=== PATIENT | male | born 1955 | race Caucasian/White ===

== ENCOUNTER 2017-07-28 06:28 | Emergency (ER) | payer BC ==
[2017-07-28] MEDS ORDERED: HYDROCODONE/APAP 5/325 MG TAB ONE (07:13)
--- NOTE | 2017-07-28 08:29 | RAD REPORT ---
EXAM DESCRIPTION: CT - Stone Protocol - 07/28/2017 8:19 am CLINICAL HISTORY: Abdominal pain, left lower extremity pain, history of cancerous polyp removal, theresa endectomy and cholecystectomy COMPARISON: CT imaging June 2015 TECHNIQUE: Axial 5 mm thick images were obtained without oral or IV contrast. The [id number] span s the entirety of the system partially obscuring uppermost abdomen and lung bases. All CT scans are performed using dose optimization technique as appropriate and may include automated exposure control or mA/KV adjustment according to patient size. FINDINGS: No hydronephrosis is present and no obstructing ureteral calculi. No suspicious renal mass es. Isodense masses and pyelonephritis are not excluded on a stone protocol CT scan. Partially filled urinary bladder shows no suspicious finding. Prostate gland and seminal vesicles within normal limit s. Nonspecific perinephric stranding is present similar to prior imaging. Liver shows a mild diffuse fatty infiltration pattern. No focal lesions on noncontrast imaging. Blanka cystectomy clips are present. No biliary tree dilatation. Spleen and pancreas show no acute or suspic ious findings. No significant adrenal finding. No acute bowel finding. Partial right colectomy changes are noted. No abnormality at the anastomotic site. No mass or bulky lymphadenopathy. Fat extends into the origin of the left inguinal canal in a pattern similar to prior imaging. No free air, free fluid or inflammatory stranding. No significant bony abnormality. IMPRESSION: Noncontrast CT abdomen and pelvis imaging shows no acute finding or significant change f rom prior imaging. Nonacute findings detailed in the body of the report. Isodense masses and pyelonephritis are not excluded on stone protocol technique.
--- NOTE | 2017-07-28 09:03 | EDPHYS ---
Physician Documentation [facility] Name: Randolph Carlin Age: 62 yrs Sex: Male : 1955 Arrival Date: 07/28/2017 Time: 06:32 Bed 20 Private MD: Christian Lopez ED Physician Porfirio Rao HPI: 07/28 06:41 This 62 yrs old Male presents to ER via Unassigned with complaints of Leg snw Pain. 06:41 The patient presents with pain, that is acute. The complaints affect the left hip, snw lateral aspect of left thigh and lateral aspect of left calf. Context: The problem was sustained at home, resulted from an unknown cause, the patient can fully bear weight, the patient is able to ambulate, without difficulty. Onset: The symptoms/episode began/occurred suddenly, and became persistent 5 days ago, with ambulation. Associated signs and symptoms: Pertinent negatives calf tenderness, numbness, weakness. Severity of symptoms: At their worst the symptoms were moderate. The patient has not experienced similar symptoms in the past. The patient has not recently seen a physician. Historical: - Allergies: 06:47 No Known Allergies; bp - Home Meds: 06:47 metformin 500 mg Oral tab 1 tab 2 times per day [Active]; hydrochlorothiazide 12.5 mg bp Oral cap 1 cap once daily [Active]; clonidine HCl 0.1 mg Oral tab 1 tab 2 times per day [Active]; diltiazem HCl 300 mg Oral cp24 1 cap once daily [Active]; - PMHx: 06:47 Diabetes - NIDDM; Hypertension; bp - Immunization history:: Adult Immunizations up to date. - Social history:: Smoking status: unknown. - Ebola Screening: : Patient negative for fever greater than or equal to 101.5 degrees Fahrenheit, and additional compatible Ebola Virus Disease symptoms Patient denies exposure to infectious person Patient denies travel to an Ebola-affected area in the 21 days before illness onset No symptoms or risks identified at this time. ROS: 06:59 Constitutional: Negative for fever, chills, and weight loss, Eyes: Negative for injury, snw pain, redness, and discharge, ENT: Negative for injury, pain, and discharge, Neck: Negative for injury, pain, and swelling, Cardiovascular: Negative for chest pain, palpitations, and edema, Respiratory: Negative for shortness of breath, cough, wheezing, and pleuritic chest pain, Abdomen/GI: Negative for abdominal pain, nausea, vomiting, diarrhea, and constipation, Back: Negative for injury and pain, : Negative for injury, bleeding, discharge, and swelling, Skin: Negative for injury, rash, and discoloration, Neuro: Negative for headache, weakness, numbness, tingling, and seizure. 06:59 MS/extremity: Positive for pain, of the left hip and left leg. Exam: 06:59 Constitutional: This is a well developed, well nourished patient who is awake, alert, snw and in no acute distress. Head/Face: Normocephalic, atraumatic. Eyes: Pupils equal round and reactive to light, extra-ocular motions intact. Lids and lashes normal. Conjunctiva and sclera are non-icteric and not injected. Cornea within normal limits. Periorbital areas with no swelling, redness, or edema. ENT: Nares patent. No nasal discharge, no septal abnormalities noted. Tympanic membranes are normal and external auditory canals are clear. Oropharynx with no redness, swelling, or masses, exudates, or evidence of obstruction, uvula midline. Mucous membranes moist. Neck: Trachea midline, no thyromegaly or masses palpated, and no cervical lymphadenopathy. Supple, full range of motion without nuchal rigidity, or vertebral point tenderness. No Meningismus. Chest/axilla: Normal chest wall appearance and motion. Nontender with no deformity. No lesions are appreciated. Cardiovascular: Regular rate and rhythm with a normal S1 and S2. No gallops, murmurs, or rubs. Normal PMI, no JVD. No pulse deficits. Respiratory: Lungs have equal breath sounds bilaterally, clear to auscultation and percussion. No rales, rhonchi or wheezes noted. No increased work of breathing, no retractions or nasal flaring. Abdomen/GI: Soft, non-tender, with normal bowel sounds. No distension or tympany. No guarding or rebound. No evidence of tenderness throughout. Back: No spinal tenderness. No costovertebral tenderness. Full range of motion. Skin: Warm, dry with normal turgor. Normal color with no rashes, no lesions, and no evidence of cellulitis. Neuro: Awake and alert, GCS 15, oriented to person, place, time, and situation. Cranial nerves II-XII grossly intact. Motor strength 5/5 in all extremities. Sensory grossly intact. Cerebellar exam normal. Normal gait. Psych: Awake, alert, with orientation to person, place and time. Behavior, mood, and affect are within normal limits. 06:59 Musculoskeletal/extremity: Extremities: grossly normal except: noted in the lateral aspect of left thigh and left hip and left leg: pain. Vital Signs: 06:47 BP 173 / 92; Pulse 80; Resp 16; Temp 98.1; Pulse Ox 96% ; Weight 99.79 kg; Height 5 ft. bp 6 in. (167.64 cm); 07:14 BP 116 / 43; Pulse 70; Resp 18; Pulse Ox 96% ; sv 06:47 Body Mass Index 35.51 (99.79 kg, 167.64 cm) bp MDM: 06:40 Patient medically screened. snw 08:02 Data reviewed: vital signs, nurses notes. Data interpreted: Pulse oximetry: on room air snw is 96 %. Interpretation: acceptable. Counseling: I had a detailed discussion with the patient and/or guardian regarding: radiology results, need to re-assess with CT to eval L2-L3 and L3-L4 spaces, plain films show increased densities in these areas. ED course: pt returned from CT via w/c. 07/28 07:03 Order name: Lumbar Spine (3 Views) XRAY; Complete Time: 09:26 snw 07/28 08:02 Order name: CT Stone Protocol; Complete Time: 08:42 snw Administered Medications: 07:14 Drug: [place] 5 mg-325 mg 1 tabs Route: PO; sv Disposition: 13:05 Co-signature as Attending Physician, Porfirio Rao MD. gs Disposition: 07/28/17 09:02 Discharged to Home. Impression: Radiculopathy, lumbar region. - Condition is Stable. - Discharge Instructions: Back Pain, Adult, Lumbosacral Radiculopathy. - Prescriptions for Diclofenac Sodium 75 mg Oral Tablet Sustained Release - take 1 tablet by ORAL route 2 times per day; 30 tablet. orphenadrine citrate 100 mg Oral Tablet Sustained Release - take 1 tablet by ORAL route 2 times per day As needed; 20 tablet. - Medication Reconciliation Form, Thank You Letter, Antibiotic Education, Prescription Opioid Use form. - Follow up: Christian Lopez MD; When: 2 - 3 days; Reason: Recheck today's complaints, Continuance of care, Re-evaluation by your physician. Follow up: Emergency Department; When: As needed; Reason: Worsening of condition. Signatures: Dispatcher [employer] EDMS Nikole Hansen RN RN sv Giulia Lerma, SWITCH COUPLER-C SWITCH COUPLER-Csnw Porfirio Rao MD MD gs Peltier, Brian, RN RN bp Corrections: (The following items were deleted from the chart) 09:43 09:02 07/28/2017 09:02 Discharged to Home. Impression: Radiculopathy, lumbar region. sv Condition is Stable. Forms are Medication Reconciliation Form, Thank You Letter, Antibiotic Education, Prescription Opioid Use. Follow up: Christian Lopez; When: 2 - 3 days; Reason: Recheck today's complaints, Continuance of care, Re-evaluation by your physician. Follow up: Emergency Department; When: As needed; Reason: Worsening of condition. snw
--- NOTE | 2017-07-28 09:03 | ER ---
Nurse's Notes [facility] Name: Randolph Carlin Age: 62 yrs Sex: Male : 1955 Arrival Date: 07/28/2017 Time: 06:32 Bed 20 Private MD: Christian Lopez Diagnosis: Radiculopathy, lumbar region Presentation: 07/28 06:45 Presenting complaint: Patient states: LEFT LEG PAIN x5 DAYS WHEN STANDING. Transition bp of care: patient was not received from another setting of care. Onset of symptoms is unknown. Risk Assessment: Do you want to hurt yourself or someone else? Patient reports no desire to harm self or others. Initial Sepsis Screen: Does the patient meet any 2 criteria? No. Patient's initial sepsis screen is negative. Does the patient have a suspected source of infection? No. Patient's initial sepsis screen is negative. Care prior to arrival: None. 06:45 Method Of Arrival: Ambulatory bp 06:45 Acuity: MARIA TERESA 4 bp Triage Assessment: 06:47 General: Appears in no apparent distress. uncomfortable, obese, Behavior is calm, bp cooperative, appropriate for age. Pain: Complains of pain in left leg. EENT: No deficits noted. Neuro: Level of Consciousness is awake, alert, obeys commands, Oriented to person, place, time, situation, Appropriate for age. Cardiovascular: No deficits noted. Respiratory: Airway is patent Respiratory effort is even, unlabored, Respiratory pattern is regular, symmetrical. GI: No signs and/or symptoms were reported involving the gastrointestinal system. : No signs and/or symptoms were reported regarding the genitourinary system. Derm: No deficits noted. Musculoskeletal: Circulation, motion, and sensation intact. Range of motion: limited in left hip. Historical: - Allergies: 06:47 No Known Allergies; bp - Home Meds: 06:47 metformin 500 mg Oral tab 1 tab 2 times per day [Active]; hydrochlorothiazide 12.5 mg bp Oral cap 1 cap once daily [Active]; clonidine HCl 0.1 mg Oral tab 1 tab 2 times per day [Active]; diltiazem HCl 300 mg Oral cp24 1 cap once daily [Active]; - PMHx: 06:47 Diabetes - NIDDM; Hypertension; bp - Immunization history:: Adult Immunizations up to date. - Social history:: Smoking status: unknown. - Ebola Screening: : Patient negative for fever greater than or equal to 101.5 degrees Fahrenheit, and additional compatible Ebola Virus Disease symptoms Patient denies exposure to infectious person Patient denies travel to an Ebola-affected area in the 21 days before illness onset No symptoms or risks identified at this time. Screenin:49 Abuse screen: Denies threats or abuse. Denies injuries from another. Nutritional bp screening: No deficits noted. Tuberculosis screening: No symptoms or risk factors identified. Fall Risk None identified. Assessment: 06:49 General: SEE TRIAGE NOTE. bp 07:16 General: Appears in no apparent distress. uncomfortable, well developed, Behavior is sv calm, cooperative, appropriate for age. Pain: Complains of pain in left hip Pain radiates to left leg Pain currently is 8 out of 10 on a pain scale. Pain began 5 days Is intermittent. Neuro: Level of Consciousness is awake, alert, obeys commands, Oriented to person, place, time, situation, Moves all extremities. Respiratory: Respiratory effort is even, unlabored, Respiratory pattern is regular, symmetrical. Derm: Skin is pink, warm \T\ dry. 09:24 Reassessment: Awaiting Giulia SURGICAL SCRUB TECHNOLOGIST to speak with pt regarding results before discharge. sv 09:40 Reassessment: Giulia in to speak with pt regarding results. sv 09:43 Reassessment: Patient appears in no apparent distress at this time. Patient and/or sv family updated on plan of care and expected duration. Pain level reassessed. Patient is alert, oriented x 3, equal unlabored respirations, skin warm/dry/pink. Vital Signs: 06:47 BP 173 / 92; Pulse 80; Resp 16; Temp 98.1; Pulse Ox 96% ; Weight 99.79 kg; Height 5 ft. bp 6 in. (167.64 cm); 07:14 BP 116 / 43; Pulse 70; Resp 18; Pulse Ox 96% ; sv 06:47 Body Mass Index 35.51 (99.79 kg, 167.64 cm) bp ED Course: 06:32 Patient arrived in ED. al2 06:32 Christian Lopez MD is Private Physician. al2 06:37 Christian Armstrong, RN is Primary Nurse. bp 06:40 Giulia Lerma FNP-C [facility]. snw 06:40 Porfirio Rao MD is Attending Physician. snw 06:45 Triage completed. bp 06:47 Arm band placed on. bp 06:49 Patient has correct armband on for positive identification. Bed in low position. Call bp light in reach. Side rails up X2. Adult w/ patient. 07:06 Primary Nurse role handed off by Christian Armstrong, FLORECITA [place] 07:08 Nikole Hansen, FLORECITA is Primary Nurse. sv 07:42 Patient moved to radiology via wheelchair. sv 07:52 Lumbar Spine (3 Views) XRAY In Process Unspecified. EDMS 07:56 Patient moved back from radiology. sv 08:18 CT completed. Patient moved to CT via wheelchair. Patient moved back from CT. sw 08:19 CT Stone Protocol In Process Unspecified. EDMS 08:43 Awaiting radiology results. sv 09:02 Christian Lopez MD is Referral Physician. snw 09:43 No provider procedures requiring assistance completed. Patient did not have IV access sv during this emergency room visit. Administered Medications: 07:14 Drug: [place] 5 mg-325 mg 1 tabs Route: PO; sv Outcome: 09:02 Discharge ordered by . snw 09:43 Discharged to home ambulatory, Pt's spouse to drive pt home. sv 09:43 Condition: stable 09:43 Discharge instructions given to patient, Instructed on discharge instructions, follow up and referral plans. medication usage, Demonstrated understanding of instructions, follow-up care, medications, Prescriptions given X 2. 09:43 Patient left the ED. sv Signatures: Dispatcher [employer] EDID Glo Reyna Nikole Hansen, RN RN Giulia Lerma, LIFTS AND CRANES INSPECTOR-C LIFTS AND CRANES INSPECTOR-Csnw Sunshine Hutton Christian Armstrong, RN Kaye Hong
--- NOTE | 2017-07-28 09:14 | RAD REPORT ---
EXAM DESCRIPTION: RAD - Lumbar Spine 3 Views - 07/28/2017 7:54 am CLINICAL HISTORY: Back pain, left lower extremity radiculopathy COMPARISON: CT imaging August 2011 FINDINGS: A three-view lumbar spine examination was performed. Lumbar bodies are normal in height and alignment. No fracture or acute finding of the lumbar vertebra e. There is wedging of the T12 vertebrae without lytic, sclerotic or expansile component. This wedge configuration is stable since 2011. L3-4 disc space is narrowed. There is slight narrowing of the L4- 5 disc space. Mid and lower lumbar facet joint degenerative change present. No pars defects identifie d. Non aneurysmal aortoiliac calcifications are present. Mild SI joint degenerative changes are noted. IMPRESSION: Moderate L3-4 and mild L4-5 degenerative disc disease. Mild to moderate lower lumbar facet joint degenerative change. No acute or destructive bone finding seen. The wedge compression of T12 is stable back to at least 20 12.
[2017-07-28 09:55] VITALS: TEMP 98.1; O2SAT 96
[2017-07-28 09:56] VITALS: BP 116/43
== END 2017-07-28 09:43 | disposition home or self-care (01) ==
LOC: ER 06:28
DX: M54.16 Radiculopathy, lumbar region (principal); I10 Essential (primary) hypertension; E11.9 Type 2 diabetes mellitus without complications
CPT/HCPCS: 72100; 74176; 76377; 99284

== ENCOUNTER 2018-03-21 20:12 | Emergency (ER) | payer BC ==
--- OUTSIDE RECORDS SUMMARY | 2018-03-21 20:16 | XMS REPORT | Summary of Care ---
:1955 Author Organization [facility] Address [id number] [place] [id number] Encounter HQ Fatou_ciro(FIN) [id number] Date(s): 07/28/15 - 07/30/15 [facility] [id number] [place] [phone] Discharge Disposition: Home Attending Physician: Diomedes Schafer MD Admitting Physician: Diomedes Schafer MD Referring Physician: Diomedes Schafer MD Vital Signs Most recent to oldest 1 2 3 [Reference Range]: Height 167.64 cm (07/21/15 4:08 PM) Temperature Oral [96.4-99.1 98.0 DegF 98.5 DegF 98.0 DegF DegF] (07/30/15 3:43 PM) (07/30/15 11:34 AM) (07/30/15 8:00 AM) Blood Pressure [90-140/60-90 165/97 mmHg 175/96 mmHg 169/96 mmHg mmHg] *HI* *HI* *HI* (07/30/15 3:43 PM) (07/30/15 11:34 AM) (07/30/15 8:00 AM) Respiratory Rate [14-20 18 BRMIN 18 BRMIN 18 BRMIN BRMIN] (07/30/15 7:19 PM) (07/30/15 3:43 PM) (07/30/15 11:52 AM) Peripheral Pulse Rate [60-100 72 bpm 95 bpm 92 bpm bpm] (07/30/15 3:43 PM) (07/30/15 11:34 AM) (07/30/15 8:00 AM) Weight 103.438 kg (07/21/15 4:08 PM) Body Mass Index 36.81 m2 (07/21/15 4:08 PM) Problem List Condition Effective Dates Status Health Status Informant Heart murmur(Confirmed) Active Hypertension(Confirmed) Active Mass of colon(Confirmed) Active Obesity(Confirmed) Active Allergies, Adverse Reactions, Alerts Substance Reaction Severity Status NKDA Active Medications ANES fentaNYL 50 microgram, 1 mL, Route: IVP, Drug form: INJ, Q5Min, Dosing Weight 103.438, kg , PRN Pain Score 7-10, Start date: 07/28/15 15:33:00 CDT, Duration: 2 doses or times, Stop date: Limited # of times Notes: (Same as: Sublimaze) Preservative free. Start Date: 07/28/15 Stop Date: 07/28/15 Status: CompletedANES flumazenil 0.2 mg, 2 mL, Route: IVP, Drug form: INJ, PRN, Dosing Weight 103.438, kg, PRN Benzodiazepine Reversal, Initial dose, Start date: 07/28/15 15:33:00 CDT, Duration: 30 day, Stop date: 08/27/15 15:32:00 CDT Notes: (Same as: Romazicon) Start Date: 07/28/15 Stop Date: 07/28/15 Status: DiscontinuedANES HYDROmorphone 0.5 mg, 0.5 mL, Route: IVP, Drug form: INJ, Q5Min, Dosing Weight 103.438, kg, PRN Pain Score 7-10, Start date: 07/28/15 15:33:00 CDT, Duration: 4 doses or times, Stop date: Limited # of times Start Date: 07/28/15 Stop Date: 07/28/15 Status: DiscontinuedANES labetalol 10 mg, 2 mL, Route: IVP, Drug form: INJ, Q5Min, Dosing Weight 103.438, kg, PRN Elevated BP, Start date: 07/28/15 15:33:00 CDT, Duration: 5 doses or times, Stop date: Limited # of times Notes: (Same as: Normodyne, Trandate)Push over 2 minutes Give bolus over 2-3 minutes. Start Date: 07/28/15 Stop Date: 07/28/15 Status: DiscontinuedANES morphine Sulfate 4 mg, 1 mL, Route: IVP, Drug form: INJ, Q5Min, Dosing Weight 103.438, kg, PRN Pain Score 7-10, Startdate: 07/28/15 15:33:00 CDT, Duration: 3 doses or times, Stop date: Limited # of times Notes: (Same as:MORPhine Sulfate) Start Date: 07/28/15 Stop Date: 07/28/15 Status: DiscontinuedANES naloxone 0.4 mg, 1 mL, Route: IVP, Drug form: INJ, Q2MIN, Dosing Weight 103.438, kg, PRN Narcotic Reversal, Start date: 07/28/15 15:33:00 CDT, Duration: 8 doses or times , Stop date: Limited # of times Notes: Same as Narcan Start Date: 07/28/15 Stop Date: 07/28/15 Status: DiscontinuedANES ondansetron 4 mg, 2 mL, Route: IVP, Drug form: INJ, ONCE, Dosing Weight 103.438, kg, PRN Nausea & Vomiting, Start date: 07/28/15 15:33:00 CDT Notes: (Same as: Keon) MEDICATION WASTE Product Size: 4 mgProduct Wasted: ___ mg Start Date: 07/28/15 Stop Date: 07/28/15 Status: DiscontinuedcloNIDine 0.1 mg oral tablet 0.1 mg, 1 tab, Route: PO, Drug form: TAB, BID, Dosing Weight 103.438, kg, Start date: 07/29/15 17:00:00 CDT, Duration: 30 day, Stop date: 08/28/15 9:00:00 CDT Notes: (Same As: Catapres) Start Date: 07/29/15 Stop Date: 07/30/15 Status: DiscontinuedDilaudid 0.5 mg, 0.5 mL, Route: IVP, Drug form: INJ, Q10Min, Dosing Weight 103.438, kg, Priority: STAT, Startdate: 07/28/15 17:45:00 CDT, Duration: 2 doses or times, Stop date: 07/28/15 17:55:00 CDT Notes: Same as: Dilaudid Start Date: 07/28/15 Stop Date: 07/28/15 Status: CompletedDilaudid 1 mg, 1 mL, Route: IV, Drug form: INJ, Q3H, Dosing Weight 103.438, kg, PRN Pain Score 7-10, Start date: 07/30/15 10:22:00 CDT, Duration: 30 day, Stop date: 10:21:00 CDT Notes: Same as: Dilaudid Start Date: 07/30/15 Stop Date: 07/30/15 Status: Discontinueddiltiazem 300 mg, 1 cap, Route: PO, Drug form: ERCAP, Daily, Dosing Weight 103.438, kg, Start date: 07/29/15 12:30:00 CDT, Duration: 30 day, Stop date: 08/28/15 9:00: 00 CDT Notes: (Same as: Cardizem CD) Before meals. DO NOT CRUSH. Start Date: 07/29/15 Stop Date: 07/30/15 Status: DiscontinuedDiltiazem Hydrochloride XR 300 mg, 1 cap, Route: PO, Drug form: ERCAP, Daily, Dosing Weight 103.438, kg, Start date: 07/30/15 9:00:00 CDT, Duration: 30 day, Stop date: 08/28/15 9:00:00 CDT Notes: (Same as: Cardizem CD) Before meals. DO NOT CRUSH. Start Date: 07/30/15 Stop Date: 07/29/15 Status: DeletedEntereg 12 mg, 1 cap, Route: PO, Drug form: CAP, BID, Dosing Weight 102.898, kg, Start date: 07/29/15 9:00:00 CDT, Duration: 7 day, Stop date: 08/04/15 17:00:00 CDT Notes: Same as: EnteregMaximum of 15 doses Alert Restricted medication Alvimopan (Entergen) order form must be completed prior to dispensing. Start Date: 07/29/15 Stop Date: 07/30/15 Status: DiscontinuedEntereg 12 mg, 1 cap, Route: PO, Drug form: CAP, ONCE, Dosing Weight 102.898, kg, Start date: 07/21/15 16:12:00 CDT, Stop date: 07/21/15 16:12:00 CDT Notes: Same as: EnteregMaximum of 15 doses Alert Restricted medication Alvimopan (Entergen) order form must be completed prior to dispensing. Start Date: 07/21/15 Stop Date: 07/30/15 Status: Discontinuedfamotidine 20 mg, 1 tab, Route: PO, Drug form: TAB, Q12H, Dosing Weight 103.438, kg, Start date: 07/28/15 21:00:00 CDT, Duration: 30 day, Stop date: 08/27/15 9:00:00 CDT Notes: (Same as: Pepcid) Start Date: 07/28/15 Stop Date: 07/30/15 Status: Discontinuedhydrochlorothiazide 12.5 mg, 0.5 tab, Route: PO, Drug form: TAB, Daily, Dosing Weight 103.438, kg, Start date: 07/30/15 9:00:00 CDT, Duration: 30 day, Stop date: 08/28/15 9:00:00 CDT Notes: (Same as: Hydrodiuril) With food. Start Date: 07/30/15 Stop Date: 07/30/15 Status: DiscontinuedHYDROmorphone MORTAR WORKER 0.5mg/ml 30ml INJ 15 mg 15 mg, 30 mL, Route: IV, Initial Loading Dose: 0.4mg, MORTAR WORKER Dose: 0.2 mg, MORTAR WORKER Lockout: 10 minutes, Continuous Basal Rate: 0 mg, 4 Hour Limit (In MG): 6, Drug Form: INJ, Continuous, Start date: 07/28/15 17:00:00 CDT, Duration: 30 day, Stop date: 08/27/15... Notes: (Same as: Dilaudid) conc=0.5 mg/mlHydromorphone MORTAR WORKER Dose: ;Delay : ;Basal: Start Date: 07/28/15 Stop Date: 07/30/15 Status: DiscontinuedketOROLAC 30 mg/mL injectable solution 30 mg, Route: IV, Drug form: INJ, ONCE, Dosing Weight 103.438, kg, Start date: 07/28/15 18:00:00 CDT, Duration: 1 doses or times, Stop date: 07/28/15 18:00:00 CDT Start Date: 07/28/15 Stop Date: 07/28/15 Status: CompletedLactated Ringers 500 mL 500 mL, Rate: 25 ml/hr, Infuse over: 20 hr, Route: IV, Dosing Weight 103.438 kg , Total Volume: 500, Start date: 07/28/15 10:14:00 CDT, Duration: 30 day, Stop date: 08/27/15 10:13:00 CDT Start Date: 07/28/15 Stop Date: 07/28/15 Status: DiscontinuedLovenox 40 mg, 0.4 mL, Route: SUB-Q, Drug form: INJ, [id number], Dosing Weight 102.898, kg , Start date: 07/29/15 6:00:00 CDT, Duration: 30 day, Stop date: 08/27/15 6:00: 00 CDT Notes: (Same as: Lovenox) Start Date: 07/29/15 Stop Date: 07/30/15 Status: Discontinuednaloxone 0.04 mg, 0.1 mL, Route: IVP, Drug form: INJ, Q2MIN, Dosing Weight 103.438, kg, PRN Narcotic Reversal, Start date: 07/28/15 16:45:00 CDT, Duration: 30 day, Stop date: 08/27/15 16:44:00 CDT Notes: Same as Narcan Start Date: 07/28/15 Stop Date: 07/30/15 Status: DiscontinuedNS + KCL 20mEq/L 1000ml (Premix) 1,000 mL 1,000 mL, Rate: 60 ml/hr, Infuse over: 16.7 hr, Route: IV, Dosing Weight 103.438 kg, Total Volume: 1,000, Priority: NOW, Start date: 07/29/15 11:36:00 CDT, Stop date: 08/28/15 11:35:00 CDT Notes: PREMIX IV - Do Not AlterWASTE: F/P - Sink; E - Municipal Trash Bin Start Date: 07/29/15 Stop Date: 07/30/15 Status: DiscontinuedNS + KCL 20mEq/L 1000ml (Premix) 1,000 mL 1,000 mL, Rate: 125 ml/hr, Infuse over: 8 hr, Route: IV, Dosing Weight 103.438 kg, Total Volume: 1,000, Start date: 07/28/15 16:45:00 CDT, Duration: 30 day, Stop date: 08/27/15 16:44:00 CDT Notes: PREMIX IV - Do Not AlterWASTE: F/P - Sink; E - Municipal Trash Bin Start Date: 07/28/15 Stop Date: 07/29/15 Status: DiscontinuedOfirmev 1,000 mg, 100 mL, Route: IV, Drug form: INJ, Q6H, Dosing Weight 102.898, kg, PRN Pain 1-3/Temp > 100.4 F, for > or=50 kg, Start date: 07/28/15 16:45:00 CDT, Duration: 30 day, Stop date: 08/27/15 16:44:00 CDT Notes: Infuse over 15 minutesDo not exceed 4gm/day of acetaminophen MEDICATION WASTE ProductSize: 1000 mgProduct Wasted: ___ mg Start Date: 07/28/15 Stop Date: 07/29/15 Status: Discontinuedondansetron 4 mg, 2 mL, Route: IVP, Drug form: INJ, Q6H, Dosing Weight 103.438, kg, PRN Nausea & Vomiting, Start date: 07/28/15 16:45:00 CDT, Duration: 30 day, Stop date: 08/27/15 16:44:00 CDT Notes: (Same as: Zofran) MEDICATION WASTE Product Size: 4 mgProduct Wasted: ___ mg Start Date: 07/28/15 Stop Date: 07/30/15 Status: Discontinuedpneumococcal 23-valent vaccine 0.5 mL, Route: IM, Drug Form: INJ, Daily, Start date: 07/30/15 9:00:00 CDT, Duration: 1 doses or times, Stop date: 07/30/15 9:00:00 CDT Notes: (Same as: Pneumovax 23) Refrigerate Start Date: 07/30/15 Stop Date: 07/30/15 Status: CompletedPneumovax 23 0.5 mL, Route: IM, Drug Form: INJ, Daily, Start date: 07/30/15 10:30:00 CDT, Duration: 1 doses or times, Stop date: 07/30/15 10:30:00 CDT Notes: (Same as: Pneumovax 23) Refrigerate Start Date: 07/30/15 Stop Date: 07/30/15 Status: CompletedTylenol 650 mg, 20.3 mL, Route: PO, Drug form: LIQ, Q6H, PRN Pain 1-3/Temp > 100.4 F, Start date: 07/29/15 20:01:00 CDT, Duration: 30 day, Stop date: 08/28/15 20:00: 00 CDT Notes: (Same as: Tylenol) Start Date: 07/29/15 Stop Date: 07/30/15 Status: DiscontinuedTylenol with Codeine #3 oral tablet 1 tab, PO, Q6H, PRN for pain, # 30 tab, 0 Refill(s) Start Date: 07/30/15 Stop Date: 08/10/15 Status: Ordered Results BLOOD BANK RESULTS Most recent to oldest [Reference Range]: 1 2 ABO/Rh O POS *Unknown* (07/21/15 4:28 PM) Antibody Scrn Negative (07/21/15 4:28 PM) ELECTROLYTES Most recent to oldest [Reference Range]: 1 2 Sodium Lvl [135-145 mEq/L] 143 mEq/L 138 mEq/L (07/29/15 4:50 AM) (07/21/15 4:28 PM) Potassium Lvl [3.5-5.1 mEq/L] 4.4 mEq/L 3.8 mEq/L (07/29/15 4:50 AM) (07/21/15 4:28 PM) Chloride Lvl [95-109 mEq/L] 111 mEq/L 107 mEq/L *HI* (07/21/15 4:28 PM) (07/29/15 4:50 AM) CO2 [24-32 mEq/L] 24 mEq/L 24 mEq/L (07/29/15 4:50 AM) (07/21/15 4:28 PM) AGAP [10.0-20.0 mEq/L] 12.4 mEq/L 10.8 mEq/L (07/29/15 4:50 AM) (07/21/15 4:28 PM) CHEM PANEL Most recent to oldest [Reference Range]: 1 2 Creatinine Lvl [0.50-1.40 mg/dL] 0.81 mg/dL 0.88 mg/dL (07/29/15 4:50 AM) (07/21/15 4:28 PM) eGFR 98 mL/min/1.73m2 1 95 mL/min/1.73m2 2 *NA* *NA* (07/29/15 4:50 AM) (07/21/15 4:28 PM) BUN [7-22 mg/dL] 13 mg/dL 12 mg/dL (07/29/15 4:50 AM) (07/21/15 4:28 PM) B/C Ratio [6-25] 14 (07/21/15 4:28 PM) Glucose Lvl [70-99 mg/dL] 164 mg/dL 107 mg/dL *HI* *HI* (07/29/15 4:50 AM) (07/21/15 4:28 PM) Total Protein [6.4-8.4 g/dL] 7.5 g/dL (07/21/15 4:28 PM) Albumin Lvl [3.5-5.0 g/dL] 4.0 g/dL (07/21/15 4:28 PM) Globulin [2.0-4.0 g/dL] 3.5 g/dL (07/21/15 4:28 PM) A/G Ratio [0.7-1.6] 1.1 (07/21/15 4:28 PM) Calcium Lvl [8.5-10.5 mg/dL] 8.2 mg/dL 8.5 mg/dL *LOW* (07/21/15 4:28 PM) (07/29/15 4:50 AM) Phosphorus [2.5-4.5 mg/dL] 3.2 mg/dL (07/29/15 4:50 AM) Magnesium Lvl [1.8-2.4 mg/dL] 2.4 mg/dL (07/29/15 4:50 AM) ALT [0-65 unit/L] 56 unit/L (07/21/15 4:28 PM) AST [0-37 unit/L] 21 unit/L (07/21/15 4:28 PM) Alk Phos [39-136 unit/L] 90 unit/L (07/21/15 4:28 PM) Bili Total [0.2-1.3 mg/dL] 0.3 mg/dL (07/21/15 4:28 PM) 1Result Comment: The eGFR is calculated using the CKD-EPI formula. In most young , healthy individualsthe eGFR will be >90 mL/min/1.73m2. The eGFR declines with age. An eGFR of 60-89 may be normal in some populations, particularly the elderly, for whom the CKD-EPI formula has not been extensively validated. Use of the eGFR is not recommended in the following populations: Individuals with unstable creatinine concentrations, including patients and those with serious co-morbid conditions. Patients with extremes in muscle mass or diet. The data above are obtained from the National Kidney Disease Education Program ( NKDEP) which additionally recommends that when the eGFR is used in patients with extremes of body mass index for purposesof drug dosing, the eGFR should be multiplied by the estimated BMI.2Result Comment: The eGFR is calculated using the CKD-EPI formula. In most young, healthy individualsthe eGFR will be >90 mL/ min/1.73m2. The eGFR declines with age. An eGFR of 60-89 may be normal in some populations, particularly the elderly, for whom the CKD-EPI formula has not been extensively validated. Use of the eGFR is not recommended in the following populations: Individuals with unstable creatinine concentrations, including patients and those with serious co-morbid conditions. Patients with extremes in muscle mass or diet. The data above are obtained from the National Kidney Disease Education Program ( NKDEP) which additionally recommends that when the eGFR is used in patients with extremes of body mass index for purposesof drug dosing, the eGFR should be multiplied by the estimated BMI.URINE AND STOOL Most recent to oldest [Reference Range]: 1 2 UA Turbidity [Clear] Clear (07/21/15 4:28 PM) UA Color [Yellow] Yellow *NA* (07/21/15 4:28 PM) UA pH [5.0-8.0] 5.5 (07/21/15 4:28 PM) UA Spec Grav [<=1.030] >=1.030 *ABN* (07/21/15 4:28 PM) UA Glucose [Negative mg/dL] 100 mg/dL *ABN* (07/21/15 4:28 PM) UA Blood [Negative] Negative (07/21/15 4:28 PM) UA Ketones [Negative] Trace *ABN* (07/21/15 4:28 PM) UA Protein [Negative] Negative (07/21/15 4:28 PM) UA Urobilinogen [0.1-1.0 EU/dL] 0.2 EU/dL (07/21/15 4:28 PM) UA Bili [Negative] Negative *NA* (07/21/15 4:28 PM) UA Leuk Est [Negative] Negative (07/21/15 4:28 PM) UA Nitrite [Negative] Negative (07/21/15 4:28 PM) UA WBC [None Seen] None Seen (07/21/15 4:28 PM) UA RBC [0-2 /HPF] 0-2 /HPF (07/21/15 4:28 PM) UA Bacteria [None Seen /HPF] Occasional /HPF (07/21/15 4:28 PM) UA Sq Epi [Few /LPF] Occasional /LPF (07/21/15 4:28 PM) HEMATOLOGY Most recent to oldest [Reference Range]: 1 2 WBC [3.7-10.4 K/CMM] 7.0 K/CMM (07/21/15 4:28 PM) RBC [4.70-6.10 M/CMM] 5.40 M/CMM (07/21/15 4:28 PM) Hgb [14.0-18.0 g/dL] 14.9 g/dL 16.0 g/dL (07/29/15 4:50 AM) (07/21/15 4:28 PM) Hct [42.0-54.0 %] 45.0 % 47.6 % (07/29/15 4:50 AM) (07/21/15 4:28 PM) MCV [80.0-94.0 fL] 88.2 fL (07/21/15 4:28 PM) MCH [27.0-31.0 pg] 29.6 pg (07/21/15 4:28 PM) MCHC [32.0-36.0 g/dL] 33.5 g/dL (07/21/15 4:28 PM) RDW [11.5-14.5 %] 13.7 % (07/21/15 4:28 PM) Platelet [133-450 K/CMM] 210 K/CMM (07/21/15 4:28 PM) MPV [7.4-10.4 fL] 9.5 fL (07/21/15 4:28 PM) Segs [45.0-75.0 %] 52.4 % (07/21/15 4:28 PM) Lymphocytes [20.0-40.0 %] 32.6 % (07/21/15 4:28 PM) Monocytes [2.0-12.0 %] 11.5 % (07/21/15 4:28 PM) Eosinophils [0.0-4.0 %] 2.6 % (07/21/15 4:28 PM) Basophils [0.0-1.0 %] 0.9 % (07/21/15 4:28 PM) Segs-Bands # [1.5-8.1 K/CMM] 3.7 K/CMM (07/21/15 4:28 PM) Lymphocytes # [1.0-5.5 K/CMM] 2.3 K/CMM (07/21/15 4:28 PM) Monocytes # [0.0-0.8 K/CMM] 0.8 K/CMM (07/21/15 4:28 PM) Eosinophils # [0.0-0.5 K/CMM] 0.2 K/CMM (07/21/15 4:28 PM) Basophils # [0.0-0.2 K/CMM] 0.1 K/CMM (07/21/15 4:28 PM) PT [12.0-14.7 seconds] 13.4 seconds (07/21/15 4:28 PM) INR [0.85-1.17] 0.99 (07/21/15 4:28 PM) PTT [22.9-35.8 seconds] 29.8 seconds (07/21/15 4:28 PM) Immunizations Given and Recorded Vaccine Date Status Refusal Reason pneumococcal 23-valent vaccine 07/30/15 Given Procedures Procedure Date Related Diagnosis Body Site Appendectomy Gallbladder operation Social History Social History Type Response Alcohol Past Smoking Status Never smoker; Exposure to Tobacco Smoke None; Cigarette Smoking Last 365 Days No; Reg Smoking Cessation Counseling No Assessment and Plan Extracted from: Title: Clinical Document Author: Isatu Padron, MPH, PA-C Date: 07/30/15 PROGRESS NOTE-DAILY Attending: Diomedes Schafer MD Service: Colon & Rectal Surg Service Code status: None Specified=FULL CODE Reason for Admission: POSTOP CARE Working DRG: Other digestive system diagnoses w/o CC/DETENTION Isolation: None Documented Consulting Physicians: (none on file) Allergies: NKDA SUBJECTIVE: -no acute events overnight. Denies f/c/n/v. -ambulating -passed flatus and has had 2 BMs -canela not removed yesterday -pain well controlled -tolerating clear liquids MEDS: SEE MAR OBJECTIVE: Vitals and Temp: Vitals Tmp(F) Pulse BP RR SpO2 FIO2 07/29 08:00 98.0 92 169/96 20 91 --- 07/29 04:49 98.2 95 183/99 -- 94 --- 07/28 20:55 98.6 74 158/81 16 93 3.0L/m 07/28 19:34 ---- --- ----- 15 93 2.0L/m 07/28 15:29 ---- --- ----- -- 97 2.0L/m 24 Hr Tmax: 98.8F (37.11c) at 07/28 13:08 Vital Signs are the last 5 in the past 48 hours. I&O Record In Out Bal 07/29 24hr Tot 0 0 0 07/28 24hr Tot 1200 1530 -330 Labs (Last four charted values) WBC 7.0 (JUL 10) Hgb 14.9 (JUL 28) 16.0 (JUL 10) Hct 45.0 (JUL 18) 47.6 (JUL 10) Plt 210 (JUL 10) Na 143 (JUL 18) 138 (LAURIE 10) K 4.4 (JUL 18) 3.8 (LAURIE 10) CO2 24 (JUL 18) 24 (LAURIE 10) Cl H 111 (JUL 18) 107 (LAURIE 10) Cr 0.81 (JUL 18) 0.88 (JUL 10) BUN 13 (JUL 18) 12 (LAURIE 10) Glucose Random H 164 (JUL 18) H 107 (JUL 10) Mg 2.4 (JUL 18) Phos 3.2 (JUL 18) Ca L 8.2 (JUL 18) 8.5 (LAURIE 10) PT 13.4 (JUL 10) INR 0.99 (JUL 10) PTT 29.8 (JUL 10) PHYSICAL EXAM: General: AOx3, in no acute distress. Cardiovascular: Regular rate and rhythm, no murmurs or gallop. No peripheral edema. Genitourinary: Normal genitalia. Extremities: Normal muscle tone and range of motion; no cyanosis or tenderness. Skin: Normal color, turgor, no rash or cyanosis. Abdomen is soft non-distended, incision site c/d/i; no evidence of purulence ASSESSMENT & PLAN: decrease ivf 60cc/h advance to soft regular diet as tolerated ambulate dc entreg dc canela dc MORTAR WORKER and Ofirmev possible dc home tonight pending he tolerates regular diet The patient was examined by Isatu Padron PA-C and d/w Dr. 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 PROCEDURE PERFORMED: Laparoscopic single port right colectomy and adhesiolysis, omentectomy. SURGEON: Dr. Schafer. CHARM FILTER OPERATOR HELPER: Isatu Padron PA-C. ANESTHESIA: General. IV FLUIDS: 1200 cc URINE OUTPUT: 200 mL ESTIMATED BLOOD LOSS: 50 mL FINDINGS: Cecal polyp with adenocarcinoma in situ ( refer to colonscopy and pathology report). SPECIMEN: Right colon, with omentum. Suture de leon the site of the polypectomy. COMPLICATIONS: None. FINDINGS: Cecal polypectomy site with suture marking the site of the polypectomy. Dense adhesions. DISPOSITION: Tolerated the procedure well, extubated in the operating room and transferred post-anesthesia care unit in stable hemodynamic condition. COUNTS: The sponge, needle, lap and instrument counts were correct at the end of the case x 2. INDICATIONS FOR PROCEDURE: The patient is a 60-year-old male who presents with adenocarcinoma in situ at a cecal polyp with positive polypectomy margin during a recent colonoscopy. He understands his condition, the operative proc edure plan, the risk/benefit ratio and potential risks for complications limited to pain, bleeding, infection, damage to surrounding organs and structures, need for further procedures and surgeries, rhiannon stomotic leak, anastomotic stricture, and perioperative cardiopulmonary risks. Informed consent was obtained. All questions were answered to his satisfaction. PROCEDURE IN DETAIL: The patient was brought to the operating room, placed on the table in supine position. General endotracheal anesthesia was induced successfully. Abdomen was prepped and draped in usual standard sterile fashion. IV antibiotics were given preoperatively and SCDs was placed to bilateral lower extremities as per NOHEMY . We made the incision via the umbilicus measuring a total of 3 cm and we placed a singl e port gel point and insufflated pneumoperitoneum to 15 mmHg and performed a diagnostic laparoscopy, we identified that the abdomen appeared to be essentially free of any pathology and the liver appeare d to be free of any lesions. There were dense adhesions at the right lower and upper quandrant with a very thick adherent omentum which required significant time for the adhesiolysis with the Ligasure. We identified the cecum and the terminal ileum, the ileocolic vascular pedicle and made a window proximally and distally at the origin and dissected the root of the ascending colon mesentery off the ret roperitoneal attachments in the second and third portion of the duodenum, which was preserved. We hemostatically divided the ileocolic vascular pedicle with the LigaSure and placed an Endoloop PDS to s ecure hemostasis. We divided the terminal ileum mesentery flush to the ileocolic vascular pedicle site up to 5 cm proximal to the ileocecal valve and marked the proximal division site and we performed a medial mobilization of the cecum and colon off the white line of Toldt in a sharp fashion, completed the mobilization by performing a hepatic flexure mobilization by taking down the hepatocolic ligame nt while preserving the liver from injury. We resected a portion of the omentum which was devascularized during the adhesiolysis. We subsequently evacuated the pneumoperitoneum. We extracted the specime n via the wound protector and divided the terminal ileum with a 75 mm blue triple line linear KEN Ethicon stapler and we used another load at the level of the hepatic flexure while preserving the right branch of the middle colic artery and vein. The specimen was opened at the back table and we confirmed the presence of the stellate polypectomy site in the cecum - proximal ascending colon. There was no other mass or tumor noted. We subsequently performed an antimesenteric side-to -side functional end-to-end ileo transverse anastomosis with another load of 75 mm linear stapler and then used 2 loads for approximation of the anastomotic stump staple line, which appeared to be healthy, viable and intact under no tension and no torsion. The anastomosis was inspected from inside and there was no active b leeding and there was no evidence of other polyps and no fecal spillage was noted, it was reintroduced into the abdomen and covered with the rest of the omentum and one vial of Evicel was instilled over the anastomosis and at the mesenteric defect and we placed a single sheet of Seprafilm underneath the midline fascial edges and approximated the mesh with # 1 PDS in running fashion and obtained hemosta sis and irrigated the wound copiously with normal saline and subsequently we approximated the skin edges with marlin and left the umbilicus open for drainage and dressing was placed. The procedure was completed. 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 The patient reports that this was his first colonoscopy. She is otherwise asymptomatic. He was found to have a 12 mm cecal polyp which was removed and revealed tubular adenoma however there was eviden ce of high-grade dysplasia and at least carcinoma in situ at a positive polypectomy margin. Malignancy cannot be excluded. He also had a splenic flexure 6 mm polyp which was removed and revealed tubul ar adenoma only and sigmoid diverticulosis. The patient also had a previous open appendectomy and a laparoscopic cholecystectomy. He is main medical problem is hypertension for which he will requir me dical clearance. His hemoglobin is 16.7g CEA level is 0.[address] he underwent a CT scan of the abdomen and pelvis and a chest x-ray which is also negative for tumor or metastatic disease. ROS: Constitutional Symptoms: no fever, no weight loss, no weight gain, no fatigue , no malaise Eyes: no diplopia, no blurred vision, no redness, no discharge, no loss of vision Ears, Nose, Mouth, Throat: no dysphagia, no odynophagia, no otalgia, no deafness, no rhinorrhea Cardiovascular: no chest pain, no SOB, no ZAFAR, no orthopnea, no PND, exercise tolerated, no palpitations Respiratory: same as CVS, no cough, no hemoptysis Gastrointestinal: no NVD, no BPR, no dark stool, no constipation, no abdominal pain Genitourinary: no dysuria, no frequency, no urgency, no nocturia, no incontinence Musculoskeletal: no arthralgia, no myalgia, no stiffness Integumentary: (skin and/or breast): no rash, no hives, no breast pain, no mass , no nipple dc Neurological: no weakness, no headache, no seizure, no dizziness, no tingling, no numbness Psychiatric: no anxiety, no depression, no insomnia Endocrine: no polyuria, no polydipsia, no fatigue, no weight loss, no weight gain, no cold or heat intolerance, no palpitations Hematologic/Lymphatic: no bleeding, no bruising, no edema, no lumps (axilla groin neck) Allergic/Immunologic: no rash, no allergies, no fever, no chills PMH: Appendectomy Gallbladder operation Tobacco Details: Use: Never smoker. Tobacco smoke exposure: None. Did the Patient Smoke Cigarettes Anytime During the Last 365 Days? No. Cessation Counseling Provided? No. No qualifying data available Medication List Active Medications Documented cloNIDine: 0.1 mg, 1 tab, PO, BID, 0 Refill(s). diltiazem: 300 mg, 1 cap, PO, Daily, 0 Refill(s). hydrochlorothiazide: 12.5 mg, PO, Daily, 0 Refill(s). Medications Inactivated in the Last 72 Hours No medications found. Allergies: NKDA PHYSICAL EXAM: Vitals Tmp(F) Pulse BP RR SpO2 FIO2 06/29 11:55 98.7 --- 150/98 -- --- --- 24 Hr Tmax: 98.7F (37.06c) at 05 11:55 Vital Signs are the last 5 in the past 48 hours. General: Well developed, well nourished, in no acute distress. Head & Neck: Normocephalic, neck supple, no palpable thyroid masses. Eyes: Extra ocular muscles intact, sclera anicteric, pupils within normal limits. Ear, Nose, & Throat: No abnormalities noted. Cardiovascular: Regular rate and rhythm, no murmurs or gallop. No peripheral edema. Respiratory: Rises symmetrically, clear to auscultation, no wheezes or ronchi. Genitourinary: Normal genitalia. Extremities: Normal gait, muscle tone, and range of motion, no cyanosis or tenderness. Skin: Normal color, turgor, no rash or cyanosis. Lymphatic: No palpable lymph nodes. Neurologic: Normal sensation and strength, normal gait and speech, moves all extremities. Psychiatric: Alert and oriented, normal judgment, mood and affect. Abdomen is soft nontender in all quadrands, nondistended, there is no organomegaly, no masses, no rebound, no peritonitis, no inguinal adenopathy Anorectal: Inspection and digital rectal exam reveals a normal resting sphincter tone and no perianal lesions. Anoscopy reveals normal anal canal. Rigid proctoscopy reveals normal rectum with brown stool, no large lesions or polyps, no bleeding, no mucus, no purulence, no proctitis up to the level of the rectosigmoid junction. Smaller lesions may not be seen today secondary to the presence of stool. 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 Malignancy cannot be excluded. No evidence of tumor or metastatic disease by current workup. I recommend to proceed with a laparoscopic single port right colectomy. He understands and he agrees with the plan. Medical clearance for the hypertension. The risks, benefits, and alternatives were discussed with the patient. The risks include, but are not limited to, pain, bleeding, infection, injury to surrounding visceral organs (including nerves, bloo d vessels, ureters, bowel), anastomotic leak, genitourinary dysfunction, need for an ostomy, need for further surgery, and perioperative complications ( myocardial infarction, pulmonary embolus/DVT, pneu monia, ileus, stroke, organ failure, prolonged hospitalization, and ). Addendum by Diomedes Schafer MD on No change in the patient's condition 07/28/2015 14:07 since he was last seen in clinic.
--- OUTSIDE RECORDS SUMMARY | 2018-03-21 20:16 | XMS REPORT | Continuity of Care Document ---
:1955 Author Organization Interface Problems Problem Status Onset Classification Date Comments Source Date Reported UNK Active [place] [address] [place] K63.5 Active [place] [address] [place] [facility] Active [address] Heart murmur Active Problem 08/02/2015 [facility] Hypertension Active Problem 08/02/2015 [facility] Mass of colon Active Problem 08/02/2015 [facility] Obesity Active Problem 08/02/2015 [facility] POLYP OF COLON Active [facility] Medications Medication Details Route Status Patient Ordering Order Source Instructions Provider Date Pneumovax 23 0.5 mL, Route: Inactive IM, Drug Form: 2015 [facility] INJ, Daily, Start date: 07/30/15 10:30:00 CDT, Duration: 1 doses or times, Stop date: 07/30/15 10:30:00 CDTNotes: (Same as: Pneumovax 23) Refrigerate Acetaminophen 300 1 tab, PO, Q6H, Active MG / Codeine PRN for pain, # 2016 [facility] Phosphate 30 MG 30 tab, 0 Oral Tablet Refill(s) [Tylenol with Codeine #3] Dilaudid 1 mg, 1 mL, Inactive Route: IV, Drug 2015 [facility] form: INJ, Q3H, Dosing Weight 103.438, kg, PRN Pain Score 7-10, Start date: 07/30/15 10:22:00 CDT, Duration: 30 day, Stop date: 08/29/15 10:21:00 CDTNotes: Same as: Dilaudid pneumococcal 0.5 mL, Route: Inactive capsular IM, Drug Form: 2015 [facility] polysaccharide INJ, Daily, type 1 vaccine / Start date: pneumococcal 07/30/15 capsular 9:00:00 CDT, polysaccharide Duration: 1 type 10A vaccine / doses or times, pneumococcal Stop date: capsular 07/30/15 polysaccharide 9:00:00 type 11A vaccine / CDTNotes: (Same pneumococcal as: Pneumovax capsular 23) polysaccharide Refrigerate type 12F vaccine / pneumococcal capsular polysacchar Diltiazem 300 mg, 1 cap, No Longer Hydrochloride XR Route: PO, Drug Active 2015 [facility] form: ERCAP, Daily, Dosing Weight 103.438, kg, Start date: 07/30/15 9:00:00 CDT, Duration: 30 day, Stop date: 08/28/15 9:00:00 CDTNotes: (Same as: Cardizem CD) Before meals. DO NOT CRUSH. Hydrochlorothiazid 12.5 mg, 0.5 Inactive e tab, Route: PO, 2015 [facility] Drug form: TAB, Daily, Dosing Weight 103.438, kg, Start date: 07/30/15 9:00:00 CDT, Duration: 30 day, Stop date: 08/28/15 9:00:00 CDTNotes: (Same as: Hydrodiuril) With food. Tylenol 650 mg, 20.3 No Longer mL, Route: PO, Active 2015 [facility] Drug form: LIQ, Q6H, PRN Pain 1-3/Temp > 100.4 F, Start date: 07/29/15 20:01:00 CDT, Duration: 30 day, Stop date: 08/28/15 20:00:00 CDTNotes: (Same as: Tylenol) Clonidine 0.1 mg, 1 tab, No Longer Hydrochloride 0.1 Route: PO, Drug Active 2015 [facility] MG Oral Tablet form: TAB, BID, Dosing Weight 103.438, kg, Start date: 07/29/15 17:00:00 CDT, Duration: 30 day, Stop date: 08/28/15 9:00:00 CDTNotes: (Same As: Catapres) Diltiazem 300 mg, 1 cap, No Longer Route: PO, Drug Active 2015 [facility] form: ERCAP, Daily, Dosing Weight 103.438, kg, Start date: 07/29/15 12:30:00 CDT, Duration: 30 day, Stop date: 08/28/15 9:00:00 CDTNotes: (Same as: Cardizem CD) Before meals. DO NOT CRUSH. NS + KCL 20mEq/L 1,000 mL, Rate: No Longer 1000ml (Premix) 60 ml/hr, Active 2015 [facility] 1,000 mL Infuse over: 16.7 hr, Route: IV, Dosing Weight 103.438 kg, Total Volume: 1,000, Priority: NOW, Start date: 07/29/15 11:36:00 CDT, Stop date: 08/28/15 11:35:00 CDTNotes: PREMIX IV - Do Not Alter WASTE: F/P - Sink; E - Municipal Trash Bin Entereg 12 mg, 1 cap, No Longer Route: PO, Drug Active 2015 [facility] form: CAP, BID, Dosing Weight 102.898, kg, Start date: 07/29/15 9:00:00 CDT, Duration: 7 day, Stop date: 08/04/15 17:00:00 CDTNotes: Same as: Entereg Maximum of 15 doses Alert Restricted medication Alvimopan (Entergen) order form must be completed prior to dispensing. Lovenox 40 mg, 0.4 mL, No Longer Route: SUB-Q, Active 2015 [facility] Drug form: INJ, [id number], Dosing Weight 102.898, kg, Start date: 07/29/15 6:00:00 CDT, Duration: 30 day, Stop date: 08/27/15 6:00:00 CDTNotes: (Same as: Lovenox) Famotidine 20 mg, 1 tab, No Longer Route: PO, Drug Active 2015 [facility] form: TAB, Q12H, Dosing Weight 103.438, kg, Start date: 07/28/15 21:00:00 CDT, Duration: 30 day, Stop date: 08/27/15 9:00:00 CDTNotes: (Same as: Pepcid) ketOROLAC 30 mg/mL 30 mg, Route: Inactive injectable IV, Drug form: 2015 [facility] solution INJ, ONCE, Dosing Weight 103.438, kg, Start date: 07/28/15 18:00:00 CDT, Duration: 1 doses or times, Stop date: 07/28/15 18:00:00 CDT Dilaudid 0.5 mg, 0.5 mL, Inactive Route: IVP, 2015 [facility] Drug form: INJ, Q10Min, Dosing Weight 103.438, kg, Priority: STAT, Start date: 07/28/15 17:45:00 CDT, Duration: 2 doses or times, Stop date: 07/28/15 17:55:00 CDTNotes: Same as: Dilaudid Hydromorphone 15 mg, 30 mL, No Longer Route: IV, Active 2015 [facility] Initial Loading Dose: 0.4mg, [employer] Dose: 0.2 mg, [employer] Lockout: 10 minutes, Continuous Basal Rate: 0 mg, 4 Hour Limit (In MG): 6, Drug Form: INJ, Continuous, Start date: 07/28/15 17:00:00 CDT, Duration: 30 day, Stop date: 08/27/15...Note s: (Same as: Dilaudid) conc=0.5 mg/ml Hydromorphone [employer] Dose: ;Delay: ;Basal: Naloxone 0.04 mg, 0.1 No Longer mL, Route: IVP, Active 2015 [facility] Drug form: INJ, Q2MIN, Dosing Weight 103.438, kg, PRN Narcotic Reversal, Start date: 07/28/15 16:45:00 CDT, Duration: 30 day, Stop date: 08/27/15 16:44:00 CDTNotes: Same as Narcan Ofirmev 1,000 mg, 100 No Longer mL, Route: IV, Active 2015 [facility] Drug form: INJ, Q6H, Dosing Weight 102.898, kg, PRN Pain 1-3/Temp > 100.4 F, for > or=50 kg, Start date: 07/28/15 16:45:00 CDT, Duration: 30 day, Stop date: 08/27/15 16:44:00 CDTNotes: Infuse over 15 minutes Do not exceed 4gm/day of acetaminophen MEDICATION WASTE Product Size: 1000 mg Product Wasted: ___ mg NS + KCL 20mEq/L 1,000 mL, Rate: No Longer 1000ml (Premix) 125 ml/hr, Active 2015 [facility] 1,000 mL Infuse over: 8 hr, Route: IV, Dosing Weight 103.438 kg, Total Volume: 1,000, Start date: 07/28/15 16:45:00 CDT, Duration: 30 day, Stop date: 08/27/15 16:44:00 CDTNotes: PREMIX IV - Do Not Alter WASTE: F/P - Sink; E - Municipal Trash Bin Ondansetron 4 mg, 2 mL, No Longer Route: IVP, Active 2015 [facility] Drug form: INJ, Q6H, Dosing Weight 103.438, kg, PRN Nausea & Vomiting, Start date: 07/28/15 16:45:00 CDT, Duration: 30 day, Stop date: 08/27/15 16:44:00 CDTNotes: (Same as: Zofran) MEDICATION WASTE Product Size: 4 mg Product Wasted: ___ mg Ondansetron 4 mg, 2 mL, Inactive Route: IVP2015 [facility] Drug form: INJ, ONCE, Dosing Weight 103.438, kg, PRN Nausea & Vomiting, Start date: 07/28/15 15:33:00 CDTNotes: (Same as: Zofran) MEDICATION WASTE Product Size: 4 mg Product Wasted: ___ mg Fentanyl 50 microgram, 1 Inactive mL, Route: IVP, 2015 [facility] Drug form: INJ, Q5Min, Dosing Weight 103.438, kg, PRN Pain Score 7-10, Start date: 07/28/15 15:33:00 CDT, Duration: 2 doses or times, Stop date: Limited # of timesNotes: (Same as: Sublimaze) Preservative free. Hydromorphone 0.5 mg, 0.5 mL, Inactive Route: IVP2015 [facility] Drug form: INJ, Q5Min, Dosing Weight 103.438, kg, PRN Pain Score 7-10, Start date: 07/28/15 15:33:00 CDT, Duration: 4 doses or times, Stop date: Limited # of times Morphine 4 mg, 1 mL, Inactive Route: IVP, 2015 [facility] Drug form: INJ, Q5Min, Dosing Weight 103.438, kg, PRN Pain Score 7-10, Start date: 07/28/15 15:33:00 CDT, Duration: 3 doses or times, Stop date: Limited # of timesNotes: (Same as:MORPhine Sulfate) Naloxone 0.4 mg, 1 mL, Inactive Route: IVP, 2015 [facility] Drug form: INJ, Q2MIN, Dosing Weight 103.438, kg, PRN Narcotic Reversal, Start date: 07/28/15 15:33:00 CDT, Duration: 8 doses or times, Stop date: Limited # of timesNotes: Same as Narcan Flumazenil 0.2 mg, 2 mL, Inactive Route: IVP, 2015 [facility] Drug form: INJ, PRN, Dosing Weight 103.438, kg, PRN Benzodiazepine Reversal, Initial dose, Start date: 07/28/15 15:33:00 CDT, Duration: 30 day, Stop date: 08/27/15 15:32:00 CDTNotes: (Same as: Romazicon) Labetalol 10 mg, 2 mL, Inactive Route: IVP, 2015 [facility] Drug form: INJ, Q5Min, Dosing Weight 103.438, kg, PRN Elevated BP, Start date: 07/28/15 15:33:00 CDT, Duration: 5 doses or times, Stop date: Limited # of timesNotes: (Same as: Normodyne, Trandate) Push over 2 minutes Give bolus over 2-3 minutes. Lactated Ringers 500 mL, Rate: Inactive 500 mL 25 ml/hr, 2015 [facility] Infuse over: 20 hr, Route: IV, Dosing Weight 103.438 kg, Total Volume: 500, Start date: 07/28/15 10:14:00 CDT, Duration: 30 day, Stop date: 08/27/15 10:13:00 CDT Entereg 12 mg, 1 cap, No Longer Route: PO, Drug Active 2015 [facility] form: CAP, ONCE, Dosing Weight 102.898, kg, Start date: 07/21/15 16:12:00 CDT, Stop date: 07/21/15 16:12:00 CDTNotes: Same as: Entereg Maximum of 15 doses Alert Restricted medication Alvimopan (Entergen) order form must be completed prior to dispensing. Allergies, Adverse Reactions, Alerts Substance Category Reaction Severity Reaction Status Date Comments Source type Reported Immunizations Immunization Date Site Status Last Comments Source Given Updated pneumococcal Right completed [place] [facility] 23-valent vaccine 6 deltoid Results Order Name Results Value Reference Date Interpretation Comments Source Range CHEM PANEL eGFR 98 07/28 Result Comment: The eGFR is calculated using the CKD-EPI formula. In most young, healthy individuals the eGFR will be >90 mL/ min/1.73m2. The eGFR declines with age. An eGFR of 60-89 may be normal in mL/min/1. some populations, particularly the elderly, for whom the CKD-EPI formula has not been extensively validated. Use of the eGFR is not recommended in the following populations: [place] [address] Individuals with unstable creatinine concentrations, including patients and those with serious co-morbid conditions. Patients with extremes in muscle mass or diet. The data above are obtained from the National Kidney Disease Education Program (NKDEP) which additionally recommends that when the eGFR is used in patients with extremes of body mass index for purposes of drug dosing, the eGFR should be multiplied by the estimated BMI. CHEM PANEL Potassium 4.4 meq/L 3.5 - 5.1 07/28 [facility] Lvl /2015 [facility] CHEM PANEL Chloride Lvl 111 meq/L 95 - 109 07/28 [facility] CHEM PANEL CO2 24 meq/L 24 - 32 07/28 [facility] CHEM PANEL Calcium Lvl 8.2 mg/dL 8.5 - 10.5 07/28 [facility] CHEM PANEL AGAP 12.4 meq/L 10.0 - 07/28 MH 20.0 [facility] CHEM PANEL BUN 13 mg/dL 7 - 22 07/28 [facility] CHEM PANEL Creatinine 0.81 mg/dL 0.50 - 07/28 MH Lvl 1.40 [facility] CHEM PANEL Sodium Lvl 143 meq/L 135 - 145 07/28 [facility] CHEM PANEL Glucose Lvl 164 mg/dL 70 - 99 07/28 [facility] CHEM PANEL Phosphorus 3.2 mg/dL 2.5 - 4.5 07/28 [facility] CHEM PANEL Magnesium 2.4 mg/dL 1.8 - 2.4 07/28 Lvl [facility] HEMATOLOGY Hgb 14.9 g/dL 14.0 - 07/28 MH 18.0 [facility] HEMATOLOGY Hct 45.0 % 42.0 - 07/28 MH 54.0 [facility] BLOOD BANK ABO/Rh O POS 07/20 RESULTS [facility] BLOOD BANK Antibody Negative 07/20 RESULTS Scrn [facility] (07/21/15 4:28 PM) CHEM PANEL A/G Ratio 1.1 0.7 - 1.6 07/20 [facility] CHEM PANEL B/C Ratio 14 6 - 25 07/20 [facility] CHEM PANEL Globulin 3.5 g/dL 2.0 - 4.0 07/20 [facility] CHEM PANEL AGAP 10.8 meq/L 10.0 - 07/20 MH 20.0 [facility] CHEM PANEL eGFR 95 07/20 Result Comment: The eGFR is calculated using the CKD-EPI formula. In most young, healthy individuals the eGFR will be >90 mL/ min/1.73m2. The eGFR declines with age. An eGFR of 60-89 may be normal in mL/min/1. some populations, particularly the elderly, for whom the CKD-EPI formula has not been extensively validated. Use of the eGFR is not recommended in the following populations: [address] Individuals with unstable creatinine concentrations, including patients and those with serious co-morbid conditions. Patients with extremes in muscle mass or diet. The data above are obtained from the National Kidney Disease Education Program (NKDEP) which additionally recommends that when the eGFR is used in patients with extremes of body mass index for purposes of drug dosing, the eGFR should be multiplied by the estimated BMI. CHEM PANEL ASPARTATE 21 unit/L 0 - 37 07/20 TRANSAMINASE [facility] CHEM PANEL Bili Total 0.3 mg/dL 0.2 - 1.3 07/20 [facility] CHEM PANEL Calcium Lvl 8.5 mg/dL 8.5 - 10.5 07/20 [facility] CHEM PANEL CO2 24 meq/L 24 - 32 07/20 [facility] CHEM PANEL Total 7.5 g/dL 6.4 - 8.4 07/20 Protein [facility] CHEM PANEL Potassium 3.8 meq/L 3.5 - 5.1 07/20 [facility] Lvl /2015 [facility] CHEM PANEL Chloride Lvl 107 meq/L 95 - 109 07/20 [facility] CHEM PANEL Sodium Lvl 138 meq/L 135 - 145 07/20 [facility] CHEM PANEL BUN 12 mg/dL 7 - 22 07/20 [facility] CHEM PANEL Glucose Lvl 107 mg/dL 70 - 99 07/20 [facility] CHEM PANEL Creatinine 0.88 mg/dL 0.50 - 07/20 MH Lvl 1.40 /2015 [facility] CHEM PANEL Alk Phos 90 unit/L 39 - 136 07/20 [facility] CHEM PANEL Albumin Lvl 4.0 g/dL 3.5 - 5.0 07/20 [facility] CHEM PANEL ALANINE 56 unit/L 0 - 65 07/20 AMINOTRANSFE [facility] HEMATOLOGY Eosinophils 0.2 K/CMM 0.0 - 0.5 10 MH # /2015 [facility] HEMATOLOGY Segs-Bands # 3.7 K/CMM 1.5 - 8.1 07/20 [facility] HEMATOLOGY Lymphocytes 2.3 K/CMM 1.0 - 5.5 07/20 MH # /2015 [facility] HEMATOLOGY Monocytes # 0.8 K/CMM 0.0 - 0.8 07/20 [facility] HEMATOLOGY Basophils # 0.1 K/CMM 0.0 - 0.2 07/20 [facility] HEMATOLOGY Eosinophils 2.6 % 0.0 - 4.0 07/20 [facility] HEMATOLOGY Monocytes 11.5 % 2.0 - 12.0 07/20 [facility] HEMATOLOGY Basophils 0.9 % 0.0 - 1.0 07/20 [facility] HEMATOLOGY Segs 52.4 % 45.0 - 07/20 MH 75.0 [facility] HEMATOLOGY Lymphocytes 32.6 % 20.0 - 06 MH 40.0 [facility] HEMATOLOGY PROTIME 13.4 s 12.0 - 07/20 MH 14.7 [facility] HEMATOLOGY INR 0.99 0.85 - 07/20 MH 1.17 [facility] HEMATOLOGY aPTT 29.8 s 22.9 - 07/20 MH 35.8 [facility] HEMATOLOGY Platelet 210 K/CMM 133 - 450 07/20 [facility] HEMATOLOGY MPV 9.5 fL 7.4 - 10.4 07/20 [facility] HEMATOLOGY MCV 88.2 fL 80.0 - 07/20 MH 94.0 /2015 [facility] HEMATOLOGY MCHC 33.5 g/dL 32.0 - 07/20 MH 36.0 /2015 [facility] HEMATOLOGY MCH 29.6 pg 27.0 - 07/20 MH 31.0 /2015 [facility] HEMATOLOGY RDW 13.7 % 11.5 - 07/20 MH 14.5 /2015 [facility] HEMATOLOGY Hgb 16.0 g/dL 14.0 - 07/20 MH 18.0 [facility] HEMATOLOGY Hct 47.6 % 42.0 - 07/20 MH 54.0 [facility] HEMATOLOGY RBC X 10x6 5.40 M/CMM 4.70 - 07/20 MH 6. [facility] HEMATOLOGY WBC X 10x3 7.0 K/CMM 3.7 - 10.4 07/20 [facility] URINE AND UA RBC 0-2 /HPF 0 - 2 07/20 STOOL [facility] URINE AND UA Leuk Est Negative Negative 07/20 STOOL [facility] (07/21/15 4:28 PM) URINE AND UA WBC None Seen None Seen 07/20 STOOL [facility] (07/21/15 4:28 PM) URINE AND UA Bacteria Occasional None Seen 07/20 [facility] /HPF /HPF [facility] URINE AND UA 0.2 EU/dL 0.1 - 1.0 07/20 STOOL Urobilinogen [facility] URINE AND UA Nitrite Negative Negative 07/20 STOOL [facility] (07/21/15 4:28 PM) URINE AND UA Sq Epi Occasional Few /LPF 07/20 [facility] /LPF /2015 [facility] URINE AND UA Blood Negative Negative 07/20 STOOL [facility] (07/21/15 4:28 PM) URINE AND UA Bili Negative Negative 07/20 STOOL [facility] *NA* (07/21/15 4:28 PM) URINE AND UA Glucose 100 mg/dL Negative 07/20 [facility] mg/dL [facility] URINE AND UA Ketones Trace Negative 07/20 STOOL [facility] *ABN* (07/21/15 4:28 PM) URINE AND UA Spec Grav >=1.030 <=1.030 07/20 [facility] *ABN* (07/21/15 4:28 PM) URINE AND UA pH 5.5 5.0 - 8.0 07/20 [facility] URINE AND UA Protein Negative Negative 07/20 [facility] (07/21/15 4:28 PM) URINE AND UA Color Yellow Yellow 07/20 [facility] *NA* (07/21/15 4:28 PM) URINE AND UA Turbidity Clear Clear 07/20 [facility] (07/21/15 4:28 PM) Chest 1view Chest 1view Study: Chest 1view DX AP 07/20 - [facility] DX - [place] Clinical Indication: Chest pain; Pre-op Chest Read by: Suman Delgado MD Dictated Date/time: 07/22/15 14:29 Comparison: None Electronically Signed by: Suman Delgado MD 07/22/15 14:30 FINAL REPORT FINDINGS: The heart and mediastinum are normal. The lungs are incompletely inflated. No pneumonia, vascular congestion or pleural effusion is seen. The skeleton is not remarkable. IMPRESSION: No abnormality identified. SL: [id number] Vital Signs Vital Sign Value Date Comments Source Respitory Rate 18 07/31/2015 [facility] Systolic (mm Hg) 165 07/30/2015 [facility] Diastolic (mm Hg) 97 07/30/2015 [facility] Temperature Oral (F) 98.0 F 07/30/2015 [facility] Heart Rate 72 07/30/2015 [facility] Respitory Rate 18 07/30/2015 [facility] Respitory Rate 18 07/30/2015 [facility] Temperature Oral (F) 98.5 F 07/30/2015 [facility] Systolic (mm Hg) 175 07/30/2015 [facility] Diastolic (mm Hg) 96 07/30/2015 [facility] Heart Rate 95 07/30/2015 [facility] Heart Rate 92 07/30/2015 [facility] Temperature Oral (F) 98.0 F 07/30/2015 [facility] Systolic (mm Hg) 169 07/30/2015 [facility] Diastolic (mm Hg) 96 07/30/2015 [facility] Weight 103.438 07/21/2015 [facility] Height 167.64 cm 07/21/2015 [facility] BMI Calculated 36.81 07/21/2015 [facility] Encounters Location Location Encounter Encounter Reason Attending ADM DC Status Source Details Type Number For Provider Date Date Visit Outpatient [id number] [place] 07/27 [id number] [facility] Outpatient [id number] [facility] [place] 08/10 [facility] [place] Outpatient [id number] [facility]16 [facility] [place] Outpatient [id number] [facility] 11/16 [facility] [place] Procedures Procedure Code Date Perfomer Comments Source Appendectomy [id number] [facility] Gallbladder [id number] [facility] operation
[2018-03-21] MEDS ORDERED: ASPIRIN 81 MG CHEWABLE TABLET ONE (20:37)
[2018-03-21] MEDS ORDERED: CLOPIDOGREL 75 MG TABLET ONE (20:37)
[2018-03-21] MEDS ORDERED: MORPHINE 4 MG/ML SYR ONE (20:38)
[2018-03-21] MEDS ORDERED: PROMETHAZINE 25 MG/ML VIAL ONE (20:38)
[2018-03-21] MEDS ORDERED: ENOXAPARIN 100 MG/ML SYR SQ ONE (20:38)
--- NOTE | 2018-03-21 20:42 | ER ---
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 Pt is also having shortness of breath and nausea. Transition of care: patient was not received from another setting of care. Onset of symptoms was March 21, 2018 at 19:55. Risk Assessment: Do you want to hurt yourself or someone else? Patient reports no desire to harm self or others. Initial Sepsis Screen: Does the patient meet any 2 criteria? No. Patient's initial sepsis screen is negative. Does the patient have a suspected source of infection? No. Patient's initial sepsis screen is negative. Care prior to arrival: None. 20:15 Method Of Arrival: Ambulatory 20:15 Acuity: MARIA TERESA 3 fc Historical: - Allergies: 20:23 No Known Allergies; fc - PMHx: 20:23 Diabetes - NIDDM; Hypertension; colon cancer; fc - PSHx: 20:23 Cholecystectomy; Appendectomy; Bowel resection; fc - Immunization history:: Last tetanus immunization: up to date Flu vaccine is not up to date. - Social history:: Smoking status: Patient/guardian denies using tobacco, Patient/guardian denies using alcohol. - Ebola Screening: : Patient negative for fever greater than or equal to 101.5 degrees Fahrenheit, and additional compatible Ebola Virus Disease symptoms Patient denies exposure to infectious person Patient denies travel to an Ebola-affected area in the 21 days before illness onset. Screenin:15 Abuse screen: Denies threats or abuse. Nutritional screening: No deficits noted. fc Tuberculosis screening: No symptoms or risk factors identified. Fall Risk None identified. Assessment: 20:42 Reassessment: Patient and/or family updated on plan of care and expected duration. Pain ed1 level reassessed. Patient is alert, oriented x 3, equal unlabored respirations, skin warm/dry/pink. Patient states symptoms have improved. 21:19 Reassessment: Patient is alert, oriented x 3, equal unlabored respirations, skin ed1 warm/dry/pink. Pain: Complains of pain in chest Pain radiates to left arm Pain currently is 5 out of 10 on a pain scale. Quality of pain is described as pressure, sharp, Pain began 1 hour ago. Is continuous. Neuro: Level of Consciousness is awake, alert, obeys commands, Oriented to person, place, time, situation. Cardiovascular: Reports chest pain, Heart tones S1 S2 present. Vital Signs: 20:15 BP 191 / 99; Pulse 90; Resp 20; Temp 97.7(O); Pulse Ox 96% on R/A; Weight 99.79 kg (R); fc Height 5 ft. 6 in. (167.64 cm) (R); Pain 7/10; 20:42 BP 198 / 92; Pulse 93; Resp 17; Temp 98.1(O); Pulse Ox 98% on 2 lpm NC; Pain 4/10; ed1 21:02 BP 165 / 93; Pulse 84; Resp 15; Pulse Ox 98% on 2 lpm NC; Pain 4/10; ed1 21:19 BP 162 / 91; Pulse 84; Resp 17; Pulse Ox 97% on 2 lpm NC; Pain 5/10; ed1 20:15 Body Mass Index 35.51 (99.79 kg, 167.64 cm) ED Course: 20:15 Patient arrived in ED. es 20:15 Christian Lopez MD is Private Physician. es 20:15 Arm band placed on Patient placed in an exam room, on a stretcher. fc 20:15 Patient has correct armband on for positive identification. Placed in gown. Bed in low fc position. Call light in reach. residential monitor on. Pulse ox on. NIBP on. 20:15 No provider procedures requiring assistance completed. fc 20:21 Triage completed. fc 20:24 Giulia Lerma FNP-C is [facility]. snw 20:24 Clarence Sidhu MD is Attending Physician. snw 20:28 Initial lab(s) drawn, by me, sent to lab. Inserted saline lock: 20 gauge in left jb4 antecubital area, using aseptic technique. Blood collected. 20:39 Alta Mckeon, RN is Primary Nurse. ed1 20:51 Missed attempt(s): 20 gauge in right antecubital area. Inserted saline lock: 20 gauge lp1 in right wrist, using aseptic technique. 21:14 XRAY Chest (1 view) In Process Unspecified. EDMS 21:19 Patient transferred, IV remains in place. intact, No redness/swelling at site. Oxygen ed1 administration via nasal cannula \T\ 2L/min. Administered Medications: 20:30 Drug: PlaVIX 600 mg Route: PO; aa1 20:52 Follow up: Response: No adverse reaction ed1 20:30 Drug: Aspirin Chewable Tablet 324 mg Route: PO; aa1 20:56 Follow up: Response: No adverse reaction ed1 20:34 Drug: Lovenox 100 mg Route: Sub-Q; Site: right lower abdomen; aa1 20:56 Follow up: Response: No adverse reaction ed1 20:36 Drug: morphine 4 mg Route: IVP; Site: left antecubital; aa1 20:57 Follow up: Response: No adverse reaction; Pain is decreased ed1 20:38 Drug: Phenergan 12.5 mg Route: IVP; Site: left antecubital; aa1 20:57 Follow up: Response: No adverse reaction; Nausea is decreased ed1 20:47 CANCELLED (other interventon used): Lopressor 25 mg PO once snw 20:52 Drug: NS 0.9% 1000 ml Route: IV; Rate: 125 ml/hr; Site: right wrist; lp1 20:57 Follow up: IV Status: Infusion continued upon admission ed1 20:57 Drug: Lopressor 5 mg {Note: BP: 198/92 HR 92.} Route: IVP; Site: right wrist; tl2 21:03 Follow up: Response: No adverse reaction; Blood pressure is lowered ed1 Point of Care Testing: Blood Glucose: 20:35 Blood Glucose: 231 mg/dL; fc Ranges: Outcome: 20:42 ER care complete, transfer ordered by . snw 21:19 Transferred by helicopter to [facility], Transfer form completed. ed1 X-rays sent w/ patient. Note: Report called to FLORECITA Cook Charge Nurse in ER 21:19 Condition: stable 21:19 Discharge instructions given to patient, Instructed on the need for transfer, Demonstrated understanding of instructions. 21:21 Patient left the ED. ed1 Signatures: Dispatcher [employer] Brionna Newby, RN RN aa1 Giulia Lerma, SAFETY LAMP KEEPER-C SAFETY LAMP KEEPER-Csnw Sully Yo Felicia, RN RN fc Alta Mckeon, RN RN ed1 Gladys Hall, RN RN lp1 Tala Arteaga, RN RN tl2 Shan Lawrence, RN RN jb4
--- NOTE | 2018-03-21 20:42 | EDPHYS ---
Physician Documentation [facility] Name: Randolph Carlin Age: 62 yrs Sex: Male : 1955 Arrival Date: 03/21/2018 Time: 20:15 Bed 2 Private MD: Christian Lopez ED Physician Clarence Sidhu HPI: 03/21 20:29 This 62 yrs old Male presents to ER via Ambulatory with complaints of Arm snw Pain, Chest Tightness. 20:29 The patient or guardian complains of pain, that is acute. The complaints affect the snw anterior aspect of left shoulder and left bicep. Context: The problem was sustained at home, resulted from unknown cause. Onset: The symptoms/episode began/occurred suddenly, 1 hour(s) ago. Treatment prior to arrival includes: no previous treatment. Modifying factors: The symptoms are alleviated by nothing. Severity of symptoms: At their worst the symptoms were moderate, severe. The patient has not experienced similar symptoms in the past. The patient has not recently seen a physician. felt like indigestion. Historical: - Allergies: 20:23 No Known Allergies; fc - PMHx: 20:23 Diabetes - NIDDM; Hypertension; colon cancer; fc - PSHx: 20:23 Cholecystectomy; Appendectomy; Bowel resection; fc - Immunization history:: Last tetanus immunization: up to date Flu vaccine is not up to date. - Social history:: Smoking status: Patient/guardian denies using tobacco, Patient/guardian denies using alcohol. - Ebola Screening: : Patient negative for fever greater than or equal to 101.5 degrees Fahrenheit, and additional compatible Ebola Virus Disease symptoms Patient denies exposure to infectious person Patient denies travel to an Ebola-affected area in the 21 days before illness onset. ROS: 20:27 Constitutional: Negative for fever, chills, and weight loss, Eyes: Negative for injury, snw pain, redness, and discharge, ENT: Negative for injury, pain, and discharge, Neck: Negative for injury, pain, and swelling. 20:27 Respiratory: Negative for shortness of breath, cough, wheezing, and pleuritic chest pain, Abdomen/GI: Negative for abdominal pain, nausea, vomiting, diarrhea, and constipation, Back: Negative for injury and pain, : Negative for injury, bleeding, discharge, and swelling, MS/Extremity: Negative for injury and deformity, Skin: Negative for injury, rash, and discoloration, Neuro: Negative for headache, weakness, numbness, tingling, and seizure. 20:27 Cardiovascular: Positive for chest pain, of the anterior aspect of left upper chest and left breast. Exam: 20:27 Constitutional: This is a well developed, well nourished patient who is awake, alert, snw and in no acute distress. Head/Face: Normocephalic, atraumatic. Eyes: Pupils equal round and reactive to light, extra-ocular motions intact. Lids and lashes normal. Conjunctiva and sclera are non-icteric and not injected. Cornea within normal limits. Periorbital areas with no swelling, redness, or edema. ENT: Nares patent. No nasal discharge, no septal abnormalities noted. Tympanic membranes are normal and external auditory canals are clear. Oropharynx with no redness, swelling, or masses, exudates, or evidence of obstruction, uvula midline. Mucous membranes moist. Neck: Trachea midline, no thyromegaly or masses palpated, and no cervical lymphadenopathy. Supple, full range of motion without nuchal rigidity, or vertebral point tenderness. No Meningismus. Cardiovascular: Regular rate and rhythm with a normal S1 and S2. No gallops, murmurs, or rubs. Normal PMI, no JVD. No pulse deficits. ST elevation in leads II, III, and aVF with mild recip changes in anterior leads Respiratory: Lungs have equal breath sounds bilaterally, clear to auscultation and percussion. No rales, rhonchi or wheezes noted. No increased work of breathing, no retractions or nasal flaring. Abdomen/GI: Soft, non-tender, with normal bowel sounds. No distension or tympany. No guarding or rebound. No evidence of tenderness throughout. Back: No spinal tenderness. No costovertebral tenderness. Full range of motion. Skin: Warm, dry with normal turgor. Normal color with no rashes, no lesions, and no evidence of cellulitis. MS/ Extremity: Pulses equal, no cyanosis. Neurovascular intact. Full, normal range of motion. Neuro: Awake and alert, GCS 15, oriented to person, place, time, and situation. Cranial nerves II-XII grossly intact. Motor strength 5/5 in all extremities. Sensory grossly intact. Cerebellar exam normal. Normal gait. Psych: Awake, alert, with orientation to person, place and time. Behavior, mood, and affect are within normal limits. Vital Signs: 20:15 BP 191 / 99; Pulse 90; Resp 20; Temp 97.7(O); Pulse Ox 96% on R/A; Weight 99.79 kg (R); fc Height 5 ft. 6 in. (167.64 cm) (R); Pain 7/10; 20:42 BP 198 / 92; Pulse 93; Resp 17; Temp 98.1(O); Pulse Ox 98% on 2 lpm NC; Pain 4/10; ed1 21:02 BP 165 / 93; Pulse 84; Resp 15; Pulse Ox 98% on 2 lpm NC; Pain 4/10; ed1 21:19 BP 162 / 91; Pulse 84; Resp 17; Pulse Ox 97% on 2 lpm NC; Pain 5/10; ed1 20:15 Body Mass Index 35.51 (99.79 kg, 167.64 cm) fc MDM: 20:33 Data reviewed: vital signs, nurses notes. Data interpreted: Pulse oximetry: on room air snw is 96 %. Interpretation: normal. Counseling: I had a detailed discussion with the patient and/or guardian regarding: the historical points, exam findings, and any diagnostic results supporting the discharge/admit diagnosis, the presence of at least one elevated blood pressure reading (>120/80) during this emergency department visit, lab results, the need to transfer to another facility, for higher level of care. 20:42 Patient medically screened. snw 20:42 Physician consultation: Dr. Bradly Vallejo was called at 20:35, was contacted at 20:38, snw regarding regarding transfer, to [facility]. Discussed half dose TNK, decided as life flight could get pt to [facility] in about 45 minutes. Hold TNK. cath lab nurse activation at [facility]. [facility] contacted at 2022. 03/21 20:26 Order name: Basic Metabolic Panel; Complete Time: 20:56 snw 03/21 20:26 Order name: CBC with Diff; Complete Time: 20:59 snw 03/21 20:26 Order name: LFT's; Complete Time: 20:56 snw 03/21 20:26 Order name: Magnesium; Complete Time: 20:56 03/21 20:26 Order name: NT PRO-BNP; Complete Time: 20:56 03/21 20:26 Order name: PT-INR; Complete Time: 20:59 w 03/21 20:26 Order name: Troponin (emerg Dept Use Only); Complete Time: 20:56 w 03/21 20:26 Order name: XRAY Chest (1 view) 03/21 20:26 Order name: Cardiac monitoring; Complete Time: 20:32 w 03/21 20:26 Order name: EKG - Nurse/Tech; Complete Time: 20:32 w 03/21 20:26 Order name: IV Saline Lock; Complete Time: 20:32 03/21 20:26 Order name: Labs collected and sent; Complete Time: 20:33 w 03/21 20:26 Order name: O2 Per Protocol; Complete Time: 20:33 w 03/21 20:26 Order name: O2 Sat Monitoring; Complete Time: 20:33 03/21 20:27 Order name: FSBS; Complete Time: 20:34 03/21 20:45 Order name: NPO; Complete Time: 20:45 03/21 20:46 Order name: Misc. Order: Maintain pacer pads on pt, prep for medical laboratory technical officer; Complete Time: w 20:51 Administered Medications: 20:30 Drug: PlaVIX 600 mg Route: PO; aa1 20:52 Follow up: Response: No adverse reaction ed1 20:30 Drug: Aspirin Chewable Tablet 324 mg Route: PO; aa1 20:56 Follow up: Response: No adverse reaction ed1 20:34 Drug: Lovenox 100 mg Route: Sub-Q; Site: right lower abdomen; aa1 20:56 Follow up: Response: No adverse reaction ed1 20:36 Drug: morphine 4 mg Route: IVP; Site: left antecubital; aa1 20:57 Follow up: Response: No adverse reaction; Pain is decreased ed1 20:38 Drug: Phenergan 12.5 mg Route: IVP; Site: left antecubital; aa1 20:57 Follow up: Response: No adverse reaction; Nausea is decreased ed1 20:47 CANCELLED (other interventon used): Lopressor 25 mg PO once snw 20:52 Drug: NS 0.9% 1000 ml Route: IV; Rate: 125 ml/hr; Site: right wrist; lp1 20:57 Follow up: IV Status: Infusion continued upon admission ed1 20:57 Drug: Lopressor 5 mg {Note: BP: 198/92 HR 92.} Route: IVP; Site: right wrist; tl2 21:03 Follow up: Response: No adverse reaction; Blood pressure is lowered ed1 Point of Care Testing: Blood Glucose: 20:35 Blood Glucose: 231 mg/dL; fc Ranges: Critical Glucose Levels:Adult <50 mg/dl or >400 mg/dl <40 mg/dl or >180 mg/dl Disposition: 22:24 Co-signature as Attending Physician, Clarence Sidhu MD. pk Disposition: 03/21/18 20:42 Transfer ordered to [facility]. Diagnosis is ST elevation (STEMI) myocardial infarction of inferior wall. - Reason for transfer: Higher level of care. - Accepting physician is Dr. Bradly Vallejo. - Condition is Serious. - Problem is new. - Symptoms are unchanged. Signatures: Dispatcher [employer] Brionna Newby, RN RN aa1 Clarence Sidhu MD MD pkl Giulia Lerma, DIRECTOR MEDICARE SALES-C DIRECTOR MEDICARE SALES-Csnw Magalys Garcia RN RN Alta Mckeon RN RN ed1 Gladys Hall RN RN lp1 Tala Arteaga, RN RN tl2 Corrections: (The following items were deleted from the chart) 20:47 20:45 Lopressor 25 mg PO once ordered. snw snw 21:21 20:42 03/21/2018 20:42 Transfer ordered to [facility]. Diagnosis is ed1 ST elevation (STEMI) myocardial infarction of inferior wall. Reason for transfer: Higher level of care. Accepting physician is Dr. Bradly Vallejo. Condition is Serious. Problem is new. Symptoms are unchanged. snw
[2018-03-21 20:48] LABS: Protime INR 1.04
[2018-03-21 20:49] LABS: Absolute Lymphocytes (CBC) 2.9 K/uL (0.7-4.9); Absolute Monocytes 0.9 K/uL (0.1-1.3); Absolute Neutrophil 2.4 K/uL (1.8-8.0); Basophils % 0.6 % (0-1.3); Eosinophils % 2.9 % (0-4.4); Hematocrit 52.4 % (39.6-49.0); Lymphocytes % 45.3 % (15.3-44.8); MPV 9.1 fL (7.6-11.3); RBC Red Blood Cell Count 5.81 M/uL (4.33-5.43)
[2018-03-21] MEDS ORDERED: NA CHLORIDE 0.9% 1,000 ML ONE (20:54)
[2018-03-21 20:55] LABS: ALT/SGPT 88 U/L (12-78); AST/SGOT 39 U/L (15-37); Albumin 4.1 g/dL (3.4-5.0); Alkaline Phosphatase 121 U/L (45-117); BUN Blood Urea Nitrogen 21 mg/dL (7-18); Bicarbonate 25 mmol/L (21-32); Bilirubin Direct < 0.1 mg/dL (0-0.2); Bilirubin Total 0.2 mg/dL (0.2-1.0); Glucose Level 245 mg/dL (74-106); Magnesium 2.2 mg/dL (1.8-2.4); NT PRO-BNP 43 pg/mL (<125); Potassium 4.2 mmol/L (3.5-5.1); Sodium Level 138 mmol/L (136-145); Troponin (Emerg Dept Use Only) < 0.02 ng/mL (0.0-0.045)
[2018-03-21] MEDS ORDERED: METOPROLOL TAR 25 MG TAB ONE (20:57)
[2018-03-21] MEDS ORDERED: METOPROLOL TARTRATE 5 MG/5 ML INJ IV ONE (21:03)
[2018-03-21 21:54] VITALS: TEMP 98.1
[2018-03-21 21:56] VITALS: BP 162/91; O2SAT 97
--- NOTE | 2018-03-22 08:46 | RAD REPORT ---
EXAM DESCRIPTION: RAD - Chest Single View - 03/21/2018 9:14 pm CLINICAL HISTORY: Chest pain, left arm pain and pressure COMPARISON: October 2014 TECHNIQUE: AP portable chest image was obtained 3 hours . FINDINGS: Lung volumes are low. No peripheral mass or consolidation. Low lung volumes accentuate kamran g markings. No significant degree of failure or volume overload. A minimal edema or infiltrate could be masked. Resuscitation paddles overlie the chest. Heart and vasculature are normal. No measurable p leural effusion and no pneumothorax. No acute bony abnormality seen. No acute aortic findings suspect ed. IMPRESSION: Shallow inspiration film showing no significant pulmonary edema, mass or infiltrate. Minimal interstitial edema or infiltrate could be masked.
--- NOTE | 2018-03-23 07:22 | EKG ---
Test Date: 2018-03-21 Test Time: 20:20:19 Speech And Hearing Director: CISCO MEASUREMENT RESULTS: Intervals: Rate: 92 MA: 136 QRSD: 82 QT: 362 QTc: 447 Chaplin: P: 63 MA: 136 QRS: 56 T: 60 INTERPRETIVE STATEMENTS: Normal sinus rhythm ST elevation, consider inferolateral injury or acute infarct ACUTE IL / STEMI Abnormal ECG Compared to ECG 08/13/2011 16:52:45 ST (T wave) deviation now present Myocardial infarct finding now present Sinus bradycardia no longer present Electronically Signed On 03-23-18 07:21:08 SOCIAL WELFARE CLERK by Faustino Villatoro
== END 2018-03-21 21:21 | disposition short-term general hospital (02) ==
LOC: ER 20:12
DX: I21.19 ST elevation (STEMI) myocardial infarction involving other coronary artery of inferior wall (principal); I10 Essential (primary) hypertension; Z85.038 Personal history of other malignant neoplasm of large intestine
CPT/HCPCS: 36415; 71045; 80048; 80076; 82962; 83735; 83880; 84484; 85025; 85610; 93005; 96372; 96374; 96375; 99285; J1650; J2550; J7030